=== PATIENT | female | born 1965 | race Caucasian/White ===

== ENCOUNTER 2021-11-06 06:54 | Day surgery (SDC) | payer OTHER ==
[~2021-11-06] VITALS: Ht 157.5 cm; Wt 69.9 kg
[2021-11-06] MEDS ORDERED: fentaNYL citrate 0.05 MG/ML VIAL ONE (08:59)
[2021-11-06] MEDS ORDERED: MIDAZOLAM 2 MG/2 ML VIAL ONE (08:59)
[2021-11-06] MEDS ORDERED: MIDAZOLAM 2 MG/2 ML VIAL IVP ONE (09:10)
== END 2021-11-06 09:37 | disposition home or self-care (01) ==
LOC: MDS 06:54 → MMU 07:03 → MDS 09:37
PROVIDERS: ATTEND Internal Medicine Gastroenterology
DX: R10.13 Epigastric pain (principal); K59.00 Constipation, unspecified; K22.2 Esophageal obstruction; I10 Essential (primary) hypertension; M06.9 Rheumatoid arthritis, unspecified; Z88.5 Allergy status to narcotic agent; Z79.84 Long term (current) use of oral hypoglycemic drugs; Z79.82 Long term (current) use of aspirin; Z79.899 Other long term (current) drug therapy
CPT/HCPCS: 36415; 43239; 86677; J2250; J3010